=== PATIENT | male | born 1935 | race Caucasian/White ===

== ENCOUNTER 2020-02-22 16:31 | Observation (INO) | payer MEDICARE ==
[2020-02-22] MEDS ORDERED: HYDROmorphone 1 MG/ML 1 ML SYRINGE IVP PRN (17:07)
[2020-02-22] MEDS ORDERED: HYDROmorphone 0.5 MG/0.5 ML SYRINGE IVP PRN (17:07)
[2020-02-22] MEDS ORDERED: NALOXONE 0.4 MG/ML 1 ML VIAL IV PRN (17:07)
[2020-02-22] MEDS ORDERED: traMADol 50 MG TAB PO PRN (17:07)
[2020-02-22] MEDS ORDERED: ACETAMINOPHEN TAB 325 MG TAB PO PRN (17:07)
--- NOTE | 2020-02-22 17:07 | ED ---
General Adult HPI - General Chief complaint: Back Pain/Injury Stated complaint: Back Pain Time Seen by Provider: 02/22/20 16:39 Source: patient, EMS, RN notes reviewed, old records reviewed (Review of report from [facility]) Mode of arrival: EMS Limitations: no limitations - History of Present Illness Initial comments: Patient is a pleasant 84-year-old male presenting to the emergency Department with complaints of low back pain. Patient was at [facility] and transferred here. Patient has had some mild intermittent back pain i ntermittently for months. Symptoms much worse with the past few days. Patient did have computed tomography scan done there. There was some concern for cellulitis to anesthesia at the emergency department however no weakness. No retention of urine or stool. Patient states discomfort is mild at this time but greatly increases with any movement. - Related Data Allergies Allergy/AdvReac Type Severity Reaction Status Date / Time No Known Allergies Allergy Verified 02/22/20 16:51 Review of Systems ROS Statement: Those systems with pertinent positive or pertinent negative responses have been documented in the HPI. ROS Other: All systems not noted in ROS Statement are negative. Constitutional: Denies: fever Eyes: Denies: eye pain ENT: Denies: ear pain Respiratory: Denies: cough Cardiovascular: Denies: chest pain Endocrine: Denies: fatigue Gastrointestinal: Denies: abdominal pain Genitourinary: Denies: dysuria Musculoskeletal: Reports: back pain Skin: Denies: rash Neurological: Denies: weakness Past Medical History Past Medical History: Coronary Artery Disease (CAD), GERD/Reflux, Hyperlipidemia, Hypertension Additional Past Medical History / Comment(s): Triple bypass in 2006 in [place]. History of Any Multi-Drug Resistant Organisms: None Reported Past Surgical History: Coronary Bypass/CABG Additional Past Surgical History / Comment(s): Triple bypass in 2006 in [place]. Past Psychological History: No Psychological Hx Reported Smoking Status: Never smoker Past Alcohol Use History: None Reported Past Drug Use History: None Reported General Exam Limitations: no limitations General appearance: alert, in no apparent distress Head exam: Present: normocephalic Eye exam: Present: normal appearance Neck exam: Present: normal inspection Respiratory exam: Present: normal lung sounds bilaterally Cardiovascular Exam: Present: regular rate, normal rhythm Expanded Peripheral pulses: 2+: Femoral (R), Femoral (L), Posterior Tibialis (R), Posterior Tibialis (L), Dorsalis Pedis (R), Dorsalis Pedis (L) GI/Abdominal exam: Present: soft. Absent: distended, tenderness, pulsatile mass exam: Present: other (No saddle anesthesia.) Extremities exam: Present: normal inspection. Absent: calf tenderness Back exam: Present: vertebral tenderness (Patient does have moderate tenderness mid lower lumbar spine) Neurological exam: Absent: motor sensory deficit Expanded Sensory exam: Lower Extremity Light Touch: Normal Motor strength exam: RLE: 5, LLE: 5 Eye Response: (4) open spontaneously Motor Response: (6) obeys commands Verbal Response: (5) oriented Psychiatric exam: Present: normal affect, normal mood Skin exam: Present: normal color Course Vital Signs 02/22/20 16:38 Pulse Rate 105 H Respiratory 18 Rate Blood Pressure 195/117 O2 Sat by Pulse 96 Oximetry Medical Decision Making - Medical Decision Making Case was discussed with practitioner in the branch with orthopedics who requests medical admission and will consult with Dr. Martinez. Dr. cancino has been paged for medical admission for hospital call. Disposition Clinical Impression: Low back pain Disposition: ADMITTED IP TO THIS HOSP Is patient prescribed a controlled substance at d/c from ED?: No Referrals: Nonstaff,Physician [Primary Care Provider] - 1-2 days Decision Time: 17:07
[2020-02-22] MEDS ORDERED: hydrALAZINE HCL 20 MG/ML 1 ML VIAL IVP STA (17:09)
[2020-02-22] MEDS ORDERED: methylPREDNISolone SOD SUCCI 125 MG/2 ML VIAL IV STA (17:10)
[2020-02-22] MEDS: SODIUM CHLORIDE 0.9% 1,000 ML IV SCH (17:44)
[2020-02-22] MEDS: methylPREDNISolone SOD SUCCI 125 MG/2 ML VIAL IV SCH (18:13)
[2020-02-22] MEDS ORDERED: HYDROcodone/APAP 5-325MG 1 EACH TAB PO PRN (19:29)
[2020-02-22] MEDS ORDERED: KETOROLAC 15 MG/ML 1 ML VIAL IVP PRN (19:29)
[2020-02-22] MEDS ORDERED: ALPRAZolam 0.25 MG TAB PO PRN (19:29)
--- NOTE | 2020-02-22 20:06 | HP ---
HISTORY AND PHYSICAL DATE OF SERVICE: 02/22/2020 CHIEF COMPLAINTS: Back pain and leg pain. HISTORY OF PRESENT ILLNESS: This 84-year-old gentleman with a past medical history of multiple medical problems, including CAD, GERD, hypertension, hyperlipidemia, history of CAD, CABG, being followed by Dr. Hester in the outpatient setting, is complaining of back pain. Patient was seen at [facility] and subsequently was transferred to [facility] for further evaluation and treatment. The patient reports the pain starting as a tingling in the back and subsequently radiating to both legs, back of the legs, but mostly on the left side. The patient also had some intermittent pain for the last several weeks apparently. A CT scan of the spine was done in [place] which showed multi-level degenerative disc disease and there was a suspicion of saddle anesthesia. The patient was transferred to [facility] for further evaluation and treatment. There is no history of any fever, rigor or chills. No history of headache, loss of consciousness, seizures at this time. PAST MEDICAL HISTORY: History of GERD, history of CAD, CABG, hypertension, hyperlipidemia. MEDICATIONS: Medications prior to admission: simvastatin 40 mg at bedtime, Protonix, Lopressor, Imdur, Ecotrin. ALLERGIES: NONE. FAMILY HISTORY: No history of heart disease or strokes in the family. SOCIAL HISTORY: No history of smoking. No history of alcohol intake. REVIEW OF SYSTEMS: ENT: Diminished hearing. Diminished vision. CARDIOVASCULAR SYSTEM: As mentioned earlier. RESPIRATORY SYSTEM: No cough, hemoptysis. NERVOUS SYSTEM: As mentioned earlier. ALLERGY/IMMUNOLOGY: No asthma, hayfever. MUSCULOSKELETAL: As mentioned earlier. HEMATOLOGY/ONCOLOGY: Negative. ENDOCRINE: No history of diabetes, hypothyroidism. CONSTITUTIONAL: As mentioned earlier. DERMATOLOGY: Negative. RHEUMATOLOGY: Negative. PSYCHIATRY: As mentioned earlier. PHYSICAL EXAMINATION: Patient alert and oriented x2. Pulse is 98, blood pressure 169/84, respiration 18, temperature normal, pulse ox 98% on room air. HEENT: Conjunctivae normal. Oral mucosa moist. NECK: No jugular venous distention. No carotid bruit. No lymph node enlargement. CARDIOVASCULAR SYSTEM: S1, S2 muffled. No murmur. No thrills. RESPIRATORY SYSTEM: Breath sounds diminished at the bases. No rhonchi. No crackles. ABDOMEN: Soft, obese, non-tender. No mass palpable. LEGS: No edema. No swelling. Kauqsseg-fvc-fsuqkly test is positive on both sides, left more than the right. NERVOUS SYSTEM: Higher functions as mentioned earlier. Moves all 4 limbs. No focal motor or sensory deficit. No saddle anesthesia appreciated. SKIN: No ulcer, rash, bleeding. JOINTS: No active deforming arthropathy. LABS: Current labs are awaited. ASSESSMENT: 1. Severe back pain and bilateral leg pain; rule out possible radiculopathy with failure of outpatient treatment. 2. Hypertensive urgency. 3. Possible degenerative joint disease. 4. History of coronary artery disease. 5. Gait dysfunction. 6. Gastroesophageal reflux disease. 7. Hypertension. 8. Hyperlipidemia. 9. History of coronary artery disease, coronary artery bypass grafting. 10.Obesity with body mass index 31.3. 11.FULL CODE. RECOMMENDATIONS AND DISCUSSION: In this 84-year-old gentleman who presented with multiple complex medical issues, we will monitor the patient closely, continue the current medications, continue with symptomatic treatment. I would recommend pain medication management. Resume the home medication. Monitor blood pressure closely. The patient was given IV hydralazine. At this time I would recommend to continue to monitor. Basic labs also will be ordered. See orders for further details. Prognosis guarded. Further recommendations to follow. PT/OT also will be consulted. MMRANDEEL / ANDRÉSN: [id number] /
[2020-02-22] MEDS: METOPROLOL TARTRATE 25 MG TAB PO SCH (20:31)
[2020-02-22] MEDS: HEPARIN SODIUM,PORCINE 5,000 UNIT/ML 1 ML VIAL SQ SCH (20:32)
[2020-02-22] MEDS: PANTOPRAZOLE 40 MG TABLET PO SCH (20:32)
[2020-02-22] MEDS: ATORVASTATIN 20 MG TAB PO SCH (20:32)
[2020-02-22 20:53] LABS: Glucose,Whole Blood 128 mg/dL (75-99)
[2020-02-22] MEDS: INSULIN ASPART (NovoLOG) 100 UNIT/ML VIAL SQ SCH (22:39)
[2020-02-23] MEDS: methylPREDNISolone SOD SUCCI 125 MG/2 ML VIAL IV SCH ×5 (00:05→23:41)
[2020-02-23 00:35] LABS: Appearance,Urine Clear (Clear); Bacteria,Urine Rare /hpf; Bilirubin,Urine Negative (Negative); Blood,Urine Trace (Negative); Color,Urine Light Yellow; Glucose,Urine (UA) Negative (Negative); Ketones,Urine Negative (Negative); Leukocyte Esterase,Urine Negative (Negative); Mucus,Urine Rare /hpf; Nitrite,Urine Negative (Negative); Protein,Urine Negative (Negative); RBC,Urine 5 /hpf (0-5); Specific Gravity,Urine 1.008 (1.001-1.035); Urobilinogen,Urine <2.0 mg/dL (<2.0); WBC,Urine <1 /hpf (0-5)
[2020-02-23 07:29] LABS: Glucose,Whole Blood 141 mg/dL (75-99)
--- NOTE | 2020-02-23 07:38 | P.CNOR ---
History of Present Illness - [facility] Consult date: 02/23/20 Consult reason: low back pain History of present illness: [id number] male who presents from [place] secondary to right low back pain as well as lower extremity weakness and pain. The patient states that over the weekend he had increasing pain in his low back and is lower extremities to the point where he could not ambulate. He went in to the hospital was concern for possible peroneal numbness. The patient states that he is doing much better today. He states that the pain in his back is almost resolved. He denies any pain down his legs at this time. He denies any weakness. He denies any bowel or bladder incontinence or evidence or incidences of this. He denies any perineal numbness or tingling at this time. He denies any perirectal numbness or tingling. He denies any fevers chills shortness of breath or chest pain at this time. He denies any trauma. Review of Systems 14 points review of systems completed and as stated in HPI, all other systems reviewed are negative. Past Medical History Past Medical History: Coronary Artery Disease (CAD), GERD/Reflux, Hyperlipidemia, Hypertension Additional Past Medical History / Comment(s): Triple bypass in 2006 in [place]. History of Any Multi-Drug Resistant Organisms: None Reported Past Surgical History: Coronary Bypass/CABG Additional Past Surgical History / Comment(s): Triple bypass in 2006 in [place]. Past Anesthesia/Blood Transfusion Reactions: No Reported Reaction Past Psychological History: No Psychological Hx Reported Smoking Status: Never smoker Past Alcohol Use History: None Reported Past Drug Use History: None Reported Medications and Allergies Home Medications Medication Instructions Recorded Confirmed Type Aspirin EC [Ecotrin Low Dose] 81 mg PO DAILY 02/22/20 02/22/20 History Isosorbide Mononitrate ER [Imdur] 30 mg PO DAILY 02/22/20 02/22/20 History Metoprolol Tartrate [Lopressor] 25 mg PO DAILY 02/22/20 02/22/20 History Pantoprazole Sodium [Protonix] 40 mg PO BID 02/22/20 02/22/20 History Simvastatin 40 mg PO HS 02/22/20 02/22/20 History Allergies Allergy/AdvReac Type Severity Reaction Status Date / Time No Known Allergies Allergy Verified 02/22/20 17:44 Physical Examination Osteopathic Statement: *. No significant issues noted on an osteopathic structural exam other than those noted in the History and Physical/Consult. GEN: AOX3, NAD VSS Inspection: [appears well-nourished in no pain at this time laying in bed] Palpation: [minimal tenderness to palpation right lower back and paraspinal region no tennis palpation of the cervical thoracic spine] Motor: [5]/5 shoulder abd/EF/EE/WF/intrinsics [4+]/5 DF/PF/EHL/FHL/HF/KE/KF patient is generally weak secondary to his medical conditions and age. There is no focal deficits noted Reflexes: 2/4 DTR all upper and LE Sensation intact to light touch in C5-T1 as well as L2-S1 distribution Angel's: [negative Clonus: [negative] Babinski: [negative] cranial nerves II through XII are grossly intact 2/4 distal pulses all extremities Results CT from [facility] is unavailable. - Labs Labs: Abnormal Lab Results - Last 24 Hours (Table) 02/22/20 02/23/20 02/23/20 Range/Units 20:39 00:15 07:26 POC Glucose (mg/dL) 128 H 141 H (75-99) mg/dL Urine Blood Trace H (Negative) Urine Bacteria Rare H (None) /hpf Urine Mucus Rare H (None) /hpf Assessment and Plan Assessment: 84-year-old male with low back pain and lower extremity radiculopathy Plan: -Appreciate medicine management. -Pain control: [adequate at this time would recommend anti-inflammatories and for steroids] -Aggressive ambulation protocol. OOB with all meals. OOB or in chair 4-5x daily. -PT/OT -TEDs, SCDs, mechanical ppx. OK for heparin today. Early ambulation is best. -GI ppx. -MRI is pending -Trend labs. -we will follow if imaging ordered
[2020-02-23 07:45] LABS: Basophils % (A) 0 %; Eosinophils % (A) 0 %; HCT 51.9 % (39.0-53.0); HGB 17.2 gm/dL (13.0-17.5); Lymphocytes # (A) 0.6 k/uL (1.0-4.8); Lymphocytes % (A) 5 %; MCH 29.4 pg (25.0-35.0); MCHC 33.1 g/dL (31.0-37.0); MCV 88.9 fL (80.0-100.0); Mean Platelet Volume 6.8; Monocytes # (A) 0.4 k/uL (0-1.0); Monocytes % (A) 3 %; Neutrophils # (A) 10.4 k/uL (1.3-7.7); Neutrophils % (A) 91 %; Platelet Count 219 k/uL (150-450); RBC 5.84 m/uL (4.30-5.90); RDW 13.4 % (11.5-15.5); WBC 11.5 k/uL (3.8-10.6)
[2020-02-23] MEDS: INSULIN ASPART (NovoLOG) 100 UNIT/ML VIAL SQ SCH ×4 (08:05→20:51)
--- NOTE | 2020-02-23 08:20 | XR ---
EXAMINATION TYPE: XR chest 1V portable DATE OF EXAM: 02/23/2020 COMPARISON: NONE HISTORY: Congestive heart failure TECHNIQUE: Single frontal view of the chest is obtained. FINDINGS: Patient is post median sternotomy and the technique is apical lordotic. There are dense at herosclerotic vascular calcifications along the carotid bulb regions and aorta. No evident pneumothor ax. The left hemidiaphragm is obscured, there is some retrocardiac density suspected. Heart appears e nlarged although patient is rotated. IMPRESSION: Suspect cardiomegaly. Possible left lower lobe atelectasis versus pneumonia and associat ed effusion. Follow-up PA and lateral chest x-ray suggested when patient is stable for better evaluat ion, prior chest x-rays may be of benefit if available.
[2020-02-23] MEDS ORDERED: amLODIPine 5 MG TAB PO SCH (09:00)
[2020-02-23] MEDS: ISOSORBIDE MONONITRATE ER 30 MG TAB.ER.24H PO SCH (09:01)
[2020-02-23] MEDS: ASPIRIN 81 MG PO SCH (09:01)
[2020-02-23] MEDS: METOPROLOL TARTRATE 25 MG TAB PO SCH ×2 (09:01→20:47)
[2020-02-23] MEDS: PANTOPRAZOLE 40 MG TABLET PO SCH ×2 (09:01→20:48)
[2020-02-23] MEDS: HEPARIN SODIUM,PORCINE 5,000 UNIT/ML 1 ML VIAL SQ SCH ×2 (09:01→20:50)
[2020-02-23 10:56] LABS: African American GFR (CKD) 79.7 (60.0-200.0); Anion Gap 9.7 mmol/L (4.00-12.00); Calcium 9.6 mg/dL (8.7-10.3); Carbon Dioxide 26.3 mmol/L (21.6-31.8); Non-African American GFR(CKD) 68.8 (60.0-200.0)
[2020-02-23 11:29] LABS: Erythrocyte Sedimentation Rate 2 mm/hr (0-15)
[2020-02-23 12:16] LABS: Glucose,Whole Blood 139 mg/dL (75-99)
--- NOTE | 2020-02-23 13:57 | MR ---
EXAMINATION TYPE: MR lumbar spine wo con DATE OF EXAM: 02/23/2020 COMPARISON: None HISTORY: LBP, saddle parasthesia CONTRAST: 0 mL intravenous Gadavist. TECHNIQUE: Multiplanar, multisequence images of the lumbar spine were acquired. FINDINGS: L5-S1: Modic type II degenerative changes are along the endplates of L5-S1. There appears to be a lar ge central disc herniation and/or some spurring from the inferior endplate of L5 mild anterior thecal sac compression. No AP spinal canal stenosis is present. There is severe bilateral foraminal narrowi ng which appears greater on the left. L4-L5: Disc space narrowing is present. Facet hypertrophy with ligamentum flavum laxity is present, g reater on the right. No spinal canal stenosis is present. There is severe right foraminal stenosis. L3-L4: Degenerative disc changes are present with narrowing of the disc height. No significant disc b ulge is evident. Facet hypertrophy with some ligamentum flavum laxity is present. No spinal canal betzaida nosis is present. Moderate bilateral foraminal narrowing is present. L2-L3: There is narrowing of disc height through this level. Facet hypertrophy with ligamentum flavum laxity is present. No spinal canal stenosis is present. Severe left foraminal stenosis is present. L1-L2: There is a large central and right paracentral disc bulge with moderate anterior thecal sac co mpression. Facet hypertrophy and ligamentum flavum laxity causing lateral canal narrowing. Some milde r narrowing the AP dimension is present. Mild right and severe left foraminal stenosis is present. T12-L1: No significant disc bulge or disc herniation. No spinal canal stenosis. No foraminal stenos is. IMPRESSION: 1. Bilateral foraminal stenosis appears severe at L5-S1. Severe right L4-5 foraminal stenosis is pres ent and severe left foraminal stenosis at L2-3 and L1-2 is present. Moderate bilateral foraminal narr owing is present L3-4. 2. Large central and right paracentral disc herniation L1-2 with moderate anterior thecal sac aidan rosa and contributing to spinal canal narrowing. 3. Facet hypertrophy with posterior lateral thecal sac compression. At the L1-L2 level this is contri buting to lateral canal stenosis. 4. Multilevel degenerative disc changes, greatest at L5-S1 5. Scoliosis.
--- NOTE | 2020-02-23 15:26 | PN ---
PROGRESS NOTE DATE OF SERVICE: 02/23/2020 This 84-year-old gentleman who was admitted with severe back pain and bilateral leg pain is being closely monitored. The patient is slated for an MRI today by Orthopedic Surgery. No chest pain. No palpitations. No fever. Still having back pain and gait dysfunction. PHYSICAL EXAMINATION: Alert and oriented x3. Pulse 83, blood pressure 116/87, respirations 16, temperature 97.3, pulse ox 98% on room air. HEENT: Conjunctivae normal. NECK: No jugular venous distention. CARDIOVASCULAR SYSTEM: S1, S2 muffled. RESPIRATORY SYSTEM: Breath sounds diminished at the bases. No rhonchi. No crackles. ABDOMEN: Soft, non-tender. LEGS: Movements are still painful. Yabgtfcs-uzr-wfdyrrz test is positive. NERVOUS SYSTEM: No focal deficit. LABS: WBC 11.4, hemoglobin 17.2. Glucose noted. ASSESSMENT: 1. Severe back pain and bilateral leg pain, possibly radiculopathy, with failure of outpatient treatment. 2. Hypertensive urgency. 3. Degenerative joint disease of the back. 4. History of coronary artery disease. 5. Gait dysfunction. 6. Gastroesophageal reflux disease. 7. Hypertension. 8. Hyperlipidemia. 9. History of coronary artery disease, coronary artery bypass grafting. 10.Obesity with body mass index of 31.3. 11.FULL CODE. RECOMMENDATIONS AND DISCUSSION: I recommend to continue current medications, continue with the monitoring, symptomatic treatment. Otherwise at this time I would recommend continuing the pain medication. Repeat labs. Await MRI reports. Prognosis guarded because of multiple complex medical issues. Further recommendations to follow. MMODL / IJN: [id number] /
[2020-02-23 17:02] LABS: Glucose,Whole Blood 105 mg/dL (75-99)
[2020-02-23] MEDS: SODIUM CHLORIDE 0.9% 1,000 ML IV SCH (17:36)
[2020-02-23 19:31] LABS: Glucose,Whole Blood 138 mg/dL (75-99)
[2020-02-23] MEDS: amLODIPine 5 MG TAB PO SCH (20:48)
[2020-02-23] MEDS: ATORVASTATIN 20 MG TAB PO SCH (22:10)
[2020-02-24] MEDS: methylPREDNISolone SOD SUCCI 125 MG/2 ML VIAL IV SCH ×2 (05:23→12:34)
[2020-02-24 05:42] LABS: Basophils % (A) 0 %; Eosinophils % (A) 0 %; HCT 50.1 % (39.0-53.0); HGB 16.6 gm/dL (13.0-17.5); Lymphocytes # (A) 0.6 k/uL (1.0-4.8); Lymphocytes % (A) 4 %; MCH 29.5 pg (25.0-35.0); MCHC 33.2 g/dL (31.0-37.0); MCV 88.7 fL (80.0-100.0); Mean Platelet Volume 6.9; Monocytes # (A) 0.6 k/uL (0-1.0); Monocytes % (A) 4 %; Neutrophils # (A) 11.9 k/uL (1.3-7.7); Neutrophils % (A) 91 %; Platelet Count 210 k/uL (150-450); RBC 5.65 m/uL (4.30-5.90); RDW 13.3 % (11.5-15.5); WBC 13.1 k/uL (3.8-10.6)
[2020-02-24 06:58] LABS: Glucose,Whole Blood 113 mg/dL (75-99)
[2020-02-24] MEDS: INSULIN ASPART (NovoLOG) 100 UNIT/ML VIAL SQ SCH (07:28)
[2020-02-24] MEDS: PANTOPRAZOLE 40 MG TABLET PO SCH (08:00)
[2020-02-24] MEDS: METOPROLOL TARTRATE 25 MG TAB PO SCH (08:00)
[2020-02-24] MEDS: amLODIPine 5 MG TAB PO SCH (08:00)
[2020-02-24] MEDS: ISOSORBIDE MONONITRATE ER 30 MG TAB.ER.24H PO SCH (08:00)
[2020-02-24] MEDS: HEPARIN SODIUM,PORCINE 5,000 UNIT/ML 1 ML VIAL SQ SCH (08:01)
[2020-02-24 08:25] VITALS: BP 141/69; PULSE 77; TEMP 97.7
--- NOTE | 2020-02-24 08:26 | P.PN ---
Subjective Progress Note Date: 02/24/20 Principal diagnosis: Low back pain Patient seen and examined this morning. He is sitting up at bedside eating breakfast states his back is nearly 100% better. He denies any pain. He has been up and about without any issues. He denies numbness or tingling. He denies any bowel or bladder issues. Objective - Vital Signs Vital signs: Vital Signs Temp 97.6 F 02/24/20 01:49 Pulse 63 02/24/20 01:49 Resp 16 02/24/20 01:49 BP 148/79 02/24/20 01:49 Pulse Ox 94 L 02/24/20 01:49 Intake & Output 02/23/20 02/24/20 02/24/20 18:59 06:59 18:59 Intake Total 360 325 Output Total 1850 Balance 360 -1525 Intake: Oral 360 325 Output: Urine 1850 Other: Voiding Method Toilet Toilet Urinal Urinal # Voids 2 4 - Exam GEN: AOX3, NAD VSS Inspection: Appears well Palpation: Pain in the lumbar thoracic spine Motor: 5/5 shoulder abd/EF/EE/WF/intrinsics 5/5 DF/PF/EHL/FHL/HF/KE/KF Reflexes: 2/4 DTR all upper and LE Sensation intact to light touch in C5-T1 as well as L2-S1 distribution Angel's: - Clonus: - Babinski: - Cranial nurse 2 through 12 intact - Labs CBC & Chem 7: 02/24/20 04:42 02/23/20 07:20 Labs: Abnormal Lab Results - Last 24 Hours (Table) 02/23/20 02/23/20 02/23/20 Range/Units 07:20 12:14 16:59 WBC (3.8-10.6) k/uL Neutrophils # (1.3-7.7) k/uL Lymphocytes # (1.0-4.8) k/uL Glucose 130 H (70-110) mg/dL POC Glucose (mg/dL) 139 H 105 H (75-99) mg/dL 02/23/20 02/24/20 02/24/20 Range/Units 19:30 04:42 06:57 WBC 13.1 H (3.8-10.6) k/uL Neutrophils # 11.9 H (1.3-7.7) k/uL Lymphocytes # 0.6 L (1.0-4.8) k/uL Glucose (70-110) mg/dL POC Glucose (mg/dL) 138 H 113 H (75-99) mg/dL Assessment and Plan Assessment: 84-year-old male with low back pain and lower extremity radiculopathy Plan: -Appreciate medicine management. -Pain control: [adequate at this time would recommend anti-inflammatories and for steroids] -Aggressive ambulation protocol. OOB with all meals. OOB or in chair 4-5x daily. -PT/OT -TEDs, SCDs, mechanical ppx. OK for heparin today. Early ambulation is best. -GI ppx. -MRI shows multiple levels of spondylosis. There is no acute levels of stenosis or severe stenosis noted on noted. There is a mild scoliotic curve. There are no fractures dislocations and overall alignment is well-maintained. -Trend labs. -Orthosis stable for home
[2020-02-24 09:23] VITALS: RESP 18
[2020-02-24] MEDS: ASPIRIN 81 MG PO SCH (09:23)
[2020-02-24 10:01] LABS: African American GFR (CKD) 79.7 (60.0-200.0); Anion Gap 12.3 mmol/L (4.00-12.00); Calcium 9.6 mg/dL (8.7-10.3); Carbon Dioxide 23.7 mmol/L (21.6-31.8); Non-African American GFR(CKD) 68.8 (60.0-200.0)
[2020-02-24 11:37] LABS: Glucose,Whole Blood 132 mg/dL (75-99)
--- NOTE | 2020-02-25 16:35 | P.DS ---
Providers Date of admission: 02/22/20 17:07 Expected date of discharge: 02/24/20 Attending physician: Juan Miguel Knox MD Consults: 02/22/20 17:07 Consult Physician Urgent Consulting Provider: Adama Martinez Consult Reason/Comments: Lower back pain Do you want consulting provider notified?: Already Contacted Primary care physician: Physician Nonstaff Hospital Course: Final diagnosis Severe back pain and bilateral leg pain, possibly radiculopathy, with failure of outpatient treatment Hypertensive urgency Degenerative joint disease of the back History of coronary artery disease Gait dysfunction Gastroesophageal reflux disease Hypertension Hyperlipidemia History of coronary artery disease, coronary artery bypass grafting Obesity with a BMI of 31.3 Full code Discharge disposition Patient is being discharged in a stable condition with guarded prognosis to home. Patient will follow-up with Dr. Hester his primary care provider in the outpatient setting upon discharge. Patient also instructed to follow-up with orthopedics in the outpatient setting upon discharge. Patient will continue with the Medrol Dosepak upon discharge. Total time taken is greater than 35 minutes. History of present illness This is an 84-year-old male who was recently admitted with severe back pain along with bilateral leg pain and was being closely monitored. Patient was seen and evaluated by orthopedic surgery recommending outpatient follow-up. Patient underwent MRI. Patient will continue on a Medrol Dosepak along with pain medications and was provided prescriptions for repeat labs. Currently no reports of chest pain, shortness of breath, or palpitations. Patient is afebrile. No reports of nausea or vomiting and patient is tolerating diet. Patient will be discharged home today. On exam vital signs are stable. Temp is 97.7F, pulse is 77, respirations are 16, blood pressure is 141/69, oxygen saturation is 97% on room air. Cardio S1, S2 are muffled. Respiratory system shows diminished breath sounds at the bases with no wheezing or rhonchi noted. Abdomen is soft and nontender. Nervous system shows no focal deficits. Please refer to medication reconciliation sheet for a list of medications. Patient Condition at Discharge: Good Plan - Discharge Summary Discharge Rx Participant: Yes New Discharge Prescriptions: New methylPREDNISolone Dose Pack [Medrol Dose Pack] 4 mg PO DIRECTED #21 package Metoprolol Tartrate [Lopressor] 25 mg PO BID 30 Days #60 tab HYDROcodone/APAP 5-325MG [[place] 5-325] 1 each PO Q6HR PRN #12 tab PRN Reason: Pain amLODIPine [Norvasc] 5 mg PO BID 30 Days #60 tab Continue Pantoprazole Sodium [Protonix] 40 mg PO BID Aspirin EC [Ecotrin Low Dose] 81 mg PO DAILY Simvastatin 40 mg PO HS Isosorbide Mononitrate ER [Imdur] 30 mg PO DAILY Discontinued Metoprolol Tartrate [Lopressor] 25 mg PO DAILY Discharge Medication List Aspirin EC [Ecotrin Low Dose] 81 mg PO DAILY 02/22/20 [History] Isosorbide Mononitrate ER [Imdur] 30 mg PO DAILY 02/22/20 [History] Pantoprazole Sodium [Protonix] 40 mg PO BID 02/22/20 [History] Simvastatin 40 mg PO HS 02/22/20 [History] HYDROcodone/APAP 5-325MG [[place] 5-325] 1 each PO Q6HR PRN #12 tab 02/24/20 [Rx] Metoprolol Tartrate [Lopressor] 25 mg PO BID 30 Days #60 tab 02/24/20 [Rx] amLODIPine [Norvasc] 5 mg PO BID 30 Days #60 tab 02/24/20 [Rx] methylPREDNISolone Dose Pack [Medrol Dose Pack] 4 mg PO DIRECTED #21 package 02/24/20 [Rx] Follow up Appointment(s)/Referral(s): Adama Martinez DO [Doctor of Osteopathic Medicine] - 03/10/20 3:50 pm Ambulatory/Diagnostic Orders: Basic Metabolic Panel [LAB.AMB] Time Frame: 2 Days, Location: None Selected Complete Blood Count w/diff [LAB.AMB] Time Frame: 2 Days, Location: None Selected Patient Instructions/Handouts: Low Back Strain (GEN) Activity/Diet/Wound Care/Special Instructions: Activity Limited until follow-up Follow-up with primary care provider Dr. Hester upon discharge Repeat labs in 2-3 days Continue with prednisone taper until finished Continue current diet Discharge Disposition: HOME SELF-CARE
== END 2020-02-24 13:34 | disposition home or self-care (01) ==
LOC: EC 16:31 → 5NMEDONC 17:07
PROVIDERS: ADMIT Internal Medicine; ATTEND Internal Medicine
DX: M47.27 Other spondylosis with radiculopathy, lumbosacral region (principal); M41.86 Other forms of scoliosis, lumbar region; I16.0 Hypertensive urgency; I25.10 Atherosclerotic heart disease of native coronary artery without angina pectoris; R26.9 Unspecified abnormalities of gait and mobility; K21.9 Gastro-esophageal reflux disease without esophagitis; I10 Essential (primary) hypertension; E78.5 Hyperlipidemia, unspecified; E66.9 Obesity, unspecified; Z95.1 Presence of aortocoronary bypass graft; Z68.31 Body mass index [BMI] 31.0-31.9, adult; Z79.899 Other long term (current) drug therapy; Z79.82 Long term (current) use of aspirin
CPT/HCPCS: 96376 ×2; 96372 ×2; 96374; 96375; 99285; 97162; 97535; 97166; 80048 ×2; 85652; 85025 ×2; 86140; 81001; 71045; 72148; G0378 ×3; J0360; J1644 ×2; J2930 ×3